=== PATIENT | male | born 1970 | race Caucasian/White ===

== ENCOUNTER → 2023-03-25 08:43 | Outpatient (BNVA) | payer OTHER, SELFPAY | PROVIDERS: Visit Provider Physician Assistant | DX: T23.401A Corrosion of unspecified degree of right hand, unspecified site, initial encounter (principal); T23.402A Corrosion of unspecified degree of left hand, unspecified site, initial encounter; T54.2X1A Toxic effect of corrosive acids and acid-like substances, accidental (unintentional), initial encounter | CPT/HCPCS: 99213 ==